=== PATIENT | female | born 1980 | race Two or more races ===

== ENCOUNTER 2024-06-25 06:34 | Outpatient (CLI) | payer OTHER ==
[2024-06-25 07:33] LABS: HEMATOCRIT 36.7 % (36.0-45.00); HEMOGLOBIN 12.5 g/dL (12.0-15.00); MEAN CELL VOLUME 83.6 fL (80.00-100.00); MEAN CORPUSCULAR HEMOGLOBIN 28.6 pg (27.00-32.0); MEAN CORPUSCULAR HGB CONC 34.2 g/dl (32.0-36.0); PLATELET COUNT 217 K/uL (150-450); RED BLOOD COUNT 4.38 M/uL (4.00-6.00); RED CELL DISTRIBUTION WIDTH 13.5 % (11.5-14.5)
[2024-06-25 07:34] LABS: PH,URINE 5.5 (5.0-8.0); URINE APPEARANCE Clear; URINE BILIRRUBIN Negative (NEGATIVE); URINE BLOOD Negative; URINE COLOR Yellow; URINE GLUCOSE Negative (NEGATIVE); URINE KETONE Negative (NEGATIVE); URINE LEUKOCYTE Trace; URINE NITRATE Negative; URINE PROTEIN Negative (NEGATIVE); URINE UROBILINOGEN 0.2 E.U./dl
[2024-06-25 07:39] LABS: URINE BACTERIA 1495.3 uL (0.0-1933); URINE EPITHELIAL CELLS 26.7 uL (0.0-38.8); URINE RBC 13.6 uL (0.0-20.8); URINE WBC 29.7 uL (0.0-23.2)
[2024-06-25 07:41] LABS: URINE CAST 0.29 uL (0.0-1.40)
[2024-06-25 08:36] LABS: ALBUMIN 3.8 gm/dL (3.4-5.0); BILIRUBIN TOTAL 0.43 mg/dL (0.3-1.2); C-REACTIVE PROTEIN 0.37 MG/DL (0.00-0.29); CALCIUM 9.1 mg/dL (8.5-10.1); CHOL HDL RATIO 2.9 (0-5.0); CREATININE SERUM 0.75 mg/dL (0.55-1.02); GFR 84.74; GLOBULINA 3.5 G/DL (2.4-3.5); POTASSIUM 4.24 mEq/L (3.5-5.1); TOTAL PROTEIN 7.3 gm/dL (6.4-8.2)
[2024-06-25 08:39] LABS: T4 FREE 0.8 NG/ML (0.76-1.46); TSH 0.972 uIU/mL (0.358-3.74)
[2024-06-25 11:18] LABS: VITAMIN D3 25 HYDROXY 29.2 ng/ml (30-120)
== END 2024-06-25 06:41 | disposition home or self-care (01) ==
LOC: LAB 06:34
PROVIDERS: ATTEND General Practice
DX: D64.9 Anemia, unspecified (principal); N39.0 Urinary tract infection, site not specified; R10.2 Pelvic and perineal pain; R10.9 Unspecified abdominal pain; R79.89 Other specified abnormal findings of blood chemistry; K68.9 Other disorders of retroperitoneum; E78.5 Hyperlipidemia, unspecified; E03.9 Hypothyroidism, unspecified; E55.9 Vitamin D deficiency, unspecified; E66.9 Obesity, unspecified; D51.8 Other vitamin B12 deficiency anemias; Z12.11 Encounter for screening for malignant neoplasm of colon; Z12.12 Encounter for screening for malignant neoplasm of rectum; N18.1 Chronic kidney disease, stage 1; R80.9 Proteinuria, unspecified; R31.9 Hematuria, unspecified; K92.1 Melena; I50.9 Heart failure, unspecified; I11.9 Hypertensive heart disease without heart failure; R07.9 Chest pain, unspecified; E06.0 Acute thyroiditis; E04.0 Nontoxic diffuse goiter

== ENCOUNTER 2024-06-25 07:51 | Outpatient (CLI) | payer OTHER | END 2024-06-25 07:59 | disposition home or self-care (01) | LOC: RAD 07:51 | PROVIDERS: ATTEND General Practice | DX: M25.512 Pain in left shoulder (principal); M79.602 Pain in left arm; M79.622 Pain in left upper arm; M25.522 Pain in left elbow; R05.9 Cough, unspecified; J45.20 Mild intermittent asthma, uncomplicated; J32.9 Chronic sinusitis, unspecified ==

== ENCOUNTER 2024-06-26 06:30 | Outpatient (CLI) | payer OTHER ==
[2024-06-26 09:28] LABS: ob NEGATIVE (NEGATIVE)
== END 2024-06-26 06:37 | disposition home or self-care (01) ==
LOC: LAB 06:30
PROVIDERS: ATTEND General Practice
DX: D64.9 Anemia, unspecified (principal); N39.0 Urinary tract infection, site not specified; R10.2 Pelvic and perineal pain; R10.9 Unspecified abdominal pain; R79.89 Other specified abnormal findings of blood chemistry; K68.9 Other disorders of retroperitoneum; E78.5 Hyperlipidemia, unspecified; E03.9 Hypothyroidism, unspecified; E55.9 Vitamin D deficiency, unspecified; E66.9 Obesity, unspecified; D51.8 Other vitamin B12 deficiency anemias; Z12.11 Encounter for screening for malignant neoplasm of colon; Z12.12 Encounter for screening for malignant neoplasm of rectum; Z13.1 Encounter for screening for diabetes mellitus; R73.01 Impaired fasting glucose; R73.9 Hyperglycemia, unspecified; N18.1 Chronic kidney disease, stage 1; R80.9 Proteinuria, unspecified; R31.9 Hematuria, unspecified; R19.5 Other fecal abnormalities; K92.1 Melena; I50.9 Heart failure, unspecified; I25.119 Atherosclerotic heart disease of native coronary artery with unspecified angina pectoris; I11.9 Hypertensive heart disease without heart failure; R07.9 Chest pain, unspecified; E06.0 Acute thyroiditis; E04.0 Nontoxic diffuse goiter

== ENCOUNTER 2024-06-26 07:04 | Outpatient (CLI) | payer OTHER | END 2024-06-26 07:15 | disposition home or self-care (01) | LOC: SONOGRAMA 07:04 | PROVIDERS: ATTEND General Practice | DX: E03.9 Hypothyroidism, unspecified (principal); E04.0 Nontoxic diffuse goiter; E06.0 Acute thyroiditis; R10.2 Pelvic and perineal pain; R10.9 Unspecified abdominal pain; R10.84 Generalized abdominal pain; Z90.711 Acquired absence of uterus with remaining cervical stump ==

== ENCOUNTER 2024-08-07 07:31 | Outpatient (CLI) | payer OTHER | END 2024-08-07 07:34 | disposition home or self-care (01) | LOC: NUCLEAR 07:31 | PROVIDERS: ATTEND General Practice | DX: I65.23 Occlusion and stenosis of bilateral carotid arteries (principal); I87.2 Venous insufficiency (chronic) (peripheral) ==

== ENCOUNTER 2025-04-01 06:07 | Outpatient (CLI) | payer OTHER ==
[2025-04-01 07:37] LABS: BASO % 0.5 % (0.1-1.2); EOS # 0.20 (0.04-0.54); EOS % 3.1 % (0.7-7.0); LYMPH # 2.17 (1.18-3.74); LYMPH % 34.0 % (19.3-53.1); MEAN PLATELET VOLUME 10.20 fl (9.4-12.4); MONO # 0.57 (0.24-0.82); MONO % 8.9 % (4.7-12.5); NEUT # 3.39 (1.56-6.13); NEUT % 53.2 % (34.0-71.1); RED CELL DISTRIBUTION WIDTH 13.0 % (11.6-14.4)
[2025-04-01 07:38] LABS: URINE APPEARANCE Clear; URINE BILIRRUBIN Negative (NEGATIVE); URINE BLOOD Negative; URINE COLOR Yellow; URINE GLUCOSE Negative (NEGATIVE); URINE KETONE Negative (NEGATIVE); URINE LEUKOCYTE Small; URINE NITRATE Negative; URINE PROTEIN Negative (NEGATIVE); URINE UROBILINOGEN 0.2 E.U./dl
[2025-04-01 07:42] LABS: URINE BACTERIA 1072.7 uL (0.0-1933); URINE EPITHELIAL CELLS 54.2 uL (0.0-38.8); URINE RBC 8.5 uL (0.0-20.8); URINE WBC 50.2 uL (0.0-23.2)
[2025-04-01 08:08] LABS: TYPE CELLS SQUAMOUS; URINE CAST 0.73 uL (0.0-1.40)
[2025-04-01 08:50] LABS: ALT/SGPT 28.0 U/L (12-78); AST/SGOT 14.0 U/L (15-37); BUN CREA RATIO 22.0 (7.0-25.0); CHOL HDL RATIO 3.7 (0-5.0); CREATININE SERUM 0.74 mg/dL (0.55-1.02); GFR 86.06; GLUCOSE FASTING 103.0 mg/dL (65-100); HDL 48.0 mg/dl (40-60); LDL 110.0 mg/dl (0-130); OSMOLALITY SERUM 285.0 MOSM/KG (275-295); T4 FREE 0.85 NG/ML (0.76-1.46); TSH 0.912 uIU/mL (0.358-3.74); VLDL 19.0 (0-39)
== END 2025-04-01 06:10 | disposition home or self-care (01) ==
LOC: LAB 06:07
PROVIDERS: ATTEND General Practice
DX: D64.9 Anemia, unspecified (principal); N39.0 Urinary tract infection, site not specified; R10.2 Pelvic and perineal pain; R10.9 Unspecified abdominal pain; R79.89 Other specified abnormal findings of blood chemistry; K76.89 Other specified diseases of liver; E78.5 Hyperlipidemia, unspecified; E03.9 Hypothyroidism, unspecified; E66.01 Morbid (severe) obesity due to excess calories; Z13.1 Encounter for screening for diabetes mellitus

== ENCOUNTER 2025-04-01 07:06 | Outpatient (CLI) | payer OTHER | END 2025-04-01 07:11 | disposition home or self-care (01) | LOC: SONOGRAMA 07:06 | PROVIDERS: ATTEND General Practice | DX: Z41.1 Encounter for cosmetic surgery (principal); K44.9 Diaphragmatic hernia without obstruction or gangrene; K27.9 Peptic ulcer, site unspecified, unspecified as acute or chronic, without hemorrhage or perforation; K21.9 Gastro-esophageal reflux disease without esophagitis; K29.70 Gastritis, unspecified, without bleeding; Z98.890 Other specified postprocedural states; K76.0 Fatty (change of) liver, not elsewhere classified; K42.9 Umbilical hernia without obstruction or gangrene; R10.2 Pelvic and perineal pain; R10.9 Unspecified abdominal pain ==